=== PATIENT | male | born 1945 | race Caucasian/White ===

== ENCOUNTER 2023-07-24 09:51 | Emergency (ER) | payer BC, SELFPAY ==
[2023-07-24 09:55] VITALS: BP 140/82
--- NOTE | 2023-07-24 10:25 | ED.GENMED ---
History of Present Illness
General
Chief Complaint: Nose Bleed
Source: patient
Exam Limitations: none
Time Seen by Provider: 07/24/23 10:02
Travel History
Have you had any contact with someone who has COVID-19?: No
Do you have any symptoms of coronavirus? Fever > 100 degrees, chills, cough, shortness of breath, sore throat, loss of taste or smell, muscle aches, or headache?: No
History of Present Illness
History of Present Illness:
78-year-old male on Eliquis presents with a nosebleed that started last night. He had trouble getting it to stop bleeding at home however en route he feels as though it stopped. He may have taken an extra Eliquis 2 days ago but he is not sure. He
denies lightheadedness or shortness of breath. No vomiting. No other complaints at this time
Phy Exam
Physical Exam
Physical Exam:
General: Well-appearing male no acute respiratory distress
HEENT: Normocephalic atraumatic left nasal cavity patent without any blood. Right nasal cavity with large blood clot. This was removed with forceps and suction. After further inspection there is a small area of bleeding over the anterior aspect
of the nose medially.
Heart: Regular rate and rhythm no murmurs
Course
Vital Signs
Initial and Last Documented VS:
Initial Vital Signs
Temp Pulse Resp BP Pulse Ox
97.8 F 80 18 140/82 97
07/24/23 09:55 07/24/23 09:55 07/24/23 09:55 07/24/23 09:55 07/24/23 09:55
Last Documented Vital Signs
Temp Pulse Resp BP Pulse Ox
97.8 F 78 16 124/73 95
07/24/23 09:55 07/24/23 11:14 07/24/23 11:14 07/24/23 11:14 07/24/23 11:14
MDM/Problems Addressed
Differential Diagnosis Includes:
Lidocaine and epinephrine was placed and soaked onto a piece of cotton. This was then placed into the nose. Will attempt to cauterize the anterior nosebleed
*Critical Care Note
Total Time (30-74mins, 75-104mins- exclusive of procedures): Not Applicable
Update Note
Update Note:
Patient's nose was packed with cotton soaked with lidocaine and epinephrine. This was then removed and the area of bleeding was identified and cauterized with silver nitrate. This slowed the bleeding. A piece of surgical foam soaked with
epinephrine was then placed directly over the site of bleeding and held for several minutes and removed. The bleeding then stopped. Patient has been here and observed he has been up on his feet without any further bleeding. Stable for discharge
with ENT follow-up.
ED Attending Note
-
Portions of this chart may have been created with voice recognition software.� Occasional wrong word or��sound alike� substitutions may have occurred due to the inherent limitations of voice recognition software.
Discharge Plan
Departure
Patient Disposition: Home (Routine Discharge)
Date of Disposition: 07/24/23
Time of Disposition: 11:24
Patient with high blood pressure during this ER visit?: No
Discharge Problem:
Acute anterior epistaxis
Referrals:
Benny Whipple, [Family Provider] -
Maxim Tim MD [Active] -
Activity Restrictions/Additional Instructions:
Keep nasal mucosa moist with Vaseline. Using minified in the room. Follow-up with ENT. Return if needed.
Interventions
Interventions:
*Risk Screen - Suicide Last Done: 07/24/23 10:15
*General Assessment Last Done: 07/24/23 10:14
*Neglect/Abuse Screening Last Done: 07/24/23 10:15
*ED COVID-19 Vaccine History Last Done: 07/24/23 10:14
ED-EENT Assessment Last Done: 07/24/23 10:14
[2023-07-24 11:14] VITALS: BP 124/73
== END 2023-07-24 11:39 | disposition home or self-care (01) ==
LOC: EMR 09:51
PROVIDERS: EMERGENCY PHYSICIAN Emergency Medicine; FAMILY PHYSICIAN Family Medicine
DX: R04.0 Epistaxis (principal); Z79.01 Long term (current) use of anticoagulants
CPT/HCPCS: 99283; 30901